=== PATIENT | male | born 1935 | race Caucasian/White ===

== ENCOUNTER 2017-03-20 15:16 | Inpatient (IN) | payer MEDICARE, OTHER ==
[~2017-03-20] VITALS: Ht 171.4 cm; Wt 85.9 kg
[2017-03-20 19:10] VITALS: BP 136/78
[2017-03-20] MEDS ORDERED: ACETAMINOPHEN 325 MG TABLET PO PRN (19:30)
[2017-03-20] MEDS ORDERED: CHOL20002 PO (19:46)
[2017-03-20] MEDS ORDERED: PROP60TA PO (19:46)
[2017-03-20] MEDS ORDERED: PRIM250T PO (19:46)
[2017-03-20] MEDS ORDERED: ASPI-621 PO (19:46)
[2017-03-20] MEDS ORDERED: SIMV10TA3 PO (19:46)
[2017-03-20] MEDS ORDERED: PLEASE ENTER HEIGHT AND WEIGHT MC SCH (20:00)
[2017-03-20] MEDS ORDERED: ACETAMINOPHEN 650 MG SUPP ONE (20:14)
[2017-03-20] MEDS ORDERED: LOSA100T6 PO ×2 (20:20→20:26)
[2017-03-20] MEDS ORDERED: AMLO5TAB2 PO (20:20)
[2017-03-20] MEDS ORDERED: AMLO2.5T PO (20:20)
[2017-03-20] MEDS ORDERED: [UNRECOGNIZED DRUG - CODE] PO (20:22)
[2017-03-20] MEDS ORDERED: HYDR12.53 PO (20:26)
[2017-03-20] MEDS ORDERED: CEFTRIAXONE PMX 1GM/50ML 50 ML IV SCH (22:30)
[2017-03-20] MEDS ORDERED: VANCOMYCIN PER PHARMACY MC PRN (22:30)
[2017-03-20] MEDS ORDERED: DOCUSATE 100 MG CAPSULE PO PRN (22:30)
[2017-03-20] MEDS ORDERED: TEMAZEPAM 15 MG CAPSULE PO PRN (22:30)
[2017-03-20] MEDS ORDERED: AMIODARONE 900 MG in DEXTROSE 5% 482 ML IV PRN (22:30)
[2017-03-20] MEDS ORDERED: HYDROcodone/APAP 5/325 TABLET PO PRN (22:30)
[2017-03-20] MEDS ORDERED: VANCOMYCIN 1,300 MG in SODIUM CHLORIDE 0.9% 250 ML IV ONE (22:30)
[2017-03-20] MEDS ORDERED: ONDANSETRON 2MG/ML, 2ML IVPush PRN (22:30)
[2017-03-20] MEDS ORDERED: PHARMACOKINETIC MONITORING MC PRN (23:00)
[2017-03-20] MEDS ORDERED: FILTER 0.22 MICRON IV PRN (23:00)
[2017-03-20] MEDS ORDERED: PHARMACOKINETIC CONSULTATION MC ONE (23:00)
[2017-03-20 23:15] LABS: CREATININE 1.12 mg/dL (0.7-1.3)
[2017-03-20] MEDS: PRIMIDONE 250 MG TABLET PO SCH (23:38)
[2017-03-20] MEDS: SODIUM CHLORIDE 0.9% 1,000 ML IV SCH (23:39)
[2017-03-21] MEDS: METRONIDAZOLE PMX 500MG/100ML 100 ML IV SCH ×3 (00:51→16:47)
[2017-03-21 00:59] VITALS: BP 122/81
[2017-03-21] MEDS ORDERED: VANCOMYCIN PER PHARMACY MC PRN (03:00)
[2017-03-21 05:27] LABS: MEAN CORPUSCULAR HEMOGLOBIN 30.2 pg (27.5-34.5); MEAN CORPUSCULAR HGB CONC 32.5 g/dL (33.2-36.2); MEAN CORPUSCULAR VOLUME 93.1 fL (81-97); MEAN PLATELET VOLUME 10.7 fL (7.4-10.4); PLATELET COUNT 121 x10^3/uL (130-400); RED BLOOD COUNT 4.15 x10^6/uL (4.38-5.82); RED CELL DISTRIBUTION WIDTH 14.6 % (9.4-14.8)
[2017-03-21 05:37] LABS: ANION GAP 8 mmol/L (5-15); CALCIUM 8.1 mg/dL (8.5-10.1); CHLORIDE 115 mmol/L (98-107); CREATININE 0.99 mg/dL (0.7-1.3)
[2017-03-21 06:06] LABS: BASOPHILS # (AUTO) 0.02 x10^3/uL (0-0.1); BASOPHILS % (AUTO) 0 % (0-1); EOSINOPHILS % (AUTO) 0 % (1-7); LYMPHOCYTES # (AUTO) 0.68 x10^3/uL (1-3.4); LYMPHOCYTES % (AUTO) 3 % (22-44); MD SCAN; MONOCYTES # (AUTO) 1.49 x10^3/uL (0.2-0.8); MONOCYTES % (AUTO) 7 % (2-9); NEUTROPHILS # (AUTO) 20.31 x10^3/uL (1.8-6.8); NEUTROPHILS % (AUTO) 90 % (42-75)
[2017-03-21] MEDS ORDERED: DILTIAZEM 5 MG/ML, 5ML IVPush ONE (08:00)
[2017-03-21] MEDS: CHOLECALCIFEROL 1,000 UNIT TABLET PO SCH (08:27)
[2017-03-21] MEDS ORDERED: METOPROLOL TARTRATE 25 MG TABLET ONE (08:30)
[2017-03-21 09:00] VITALS: BP 119/82
[2017-03-21] MEDS: LOSARTAN 50MG TABLET PO SCH (09:00)
[2017-03-21] MEDS ORDERED: PROPRANOLOl 80 MG CAP.SA.24H PO SCH (09:00)
[2017-03-21] MEDS: AMLODIPINE 2.5 MG TABLET PO SCH (09:00)
[2017-03-21] MEDS: DILTIAZEM 125 MG in SODIUM CHLORIDE 0.9% 100 ML IV PRN (09:01)
[2017-03-21] MEDS: HYDROCHLOROTHIAZIDE 12.5 MG CAPSULE PO SCH (09:02)
[2017-03-21] MEDS: METOPROLOL TARTRATE 25 MG TABLET PO SCH ×2 (09:02→21:36)
[2017-03-21] MEDS: SODIUM CHLORIDE 0.9% 1,000 ML IV SCH ×2 (09:02→22:15)
[2017-03-21 14:15] VITALS: BP 118/73
[2017-03-21] MEDS ORDERED: EPINEPHRINE 1 MG/ML, 1ML ONE (18:07)
[2017-03-21] MEDS ORDERED: BUPIVACAINE/PF 0.5% ONE (18:07)
[2017-03-21] MEDS ORDERED: FENTANYL PF 250 MCG/5ML ONE (18:16)
[2017-03-21] MEDS ORDERED: SUCCINYLCHOLINE 20 MG/ML, 10ML ONE (18:17)
[2017-03-21] MEDS ORDERED: ROCURONIUM 10 MG/ML,10ML ONE (18:17)
[2017-03-21] MEDS ORDERED: PROPOFOL 10 MG/ML, 20ML ONE (18:58)
[2017-03-21] MEDS ORDERED: ONDANSETRON 2MG/ML, 2ML ONE (18:59)
[2017-03-21] MEDS ORDERED: THROMBIN 5,000 UNIT VIAL TP ONE (19:17)
[2017-03-21] MEDS ORDERED: MICROFIBRILLAR COLLAGEN 70X35X1 DRESSING ONE (19:19)
[2017-03-21] MEDS ORDERED: OXYcodone 5 MG/5 ML ORAL.SOL UDC PO PRN (19:30)
[2017-03-21] MEDS ORDERED: FENTANYL PF 100 MCG/2ML IV PRN (19:30)
[2017-03-21] MEDS ORDERED: LABETALOL 5MG/ML, 20ML IV PRN (19:30)
[2017-03-21] MEDS ORDERED: ALBUTEROL SULFATE 2.5 MG/3 ML NPPB PRN (19:30)
[2017-03-21] MEDS ORDERED: ACETAMINOPHEN 325 MG TABLET PO PRN (19:30)
[2017-03-21] MEDS ORDERED: hydrALAzine 20 MG/ML, 1ML IV PRN (19:30)
[2017-03-21] MEDS ORDERED: ALBUTEROL/IPRATROPIUM 2.5MG/0.5MG, 3 ML NPPB PRN (19:30)
[2017-03-21] MEDS ORDERED: ONDANSETRON 2MG/ML, 2ML IVPush PRN (19:30)
[2017-03-21] MEDS ORDERED: PROMETHAZINE 25 MG/ML, 1ML IV PRN (19:30)
[2017-03-21] MEDS ORDERED: morphine SULFATE 10 MG/ML, 1ML IV PRN (19:30)
[2017-03-21] MEDS ORDERED: METOCLOPRAMIDE 5 MG/ML, 2ML ONE (19:57)
[2017-03-21] MEDS: PRIMIDONE 250 MG TABLET PO SCH (21:36)
[2017-03-21] MEDS: PIPERACILLIN/TAZO/PMX 3.375GM 50 ML IV SCH (21:36)
[2017-03-21 22:13] VITALS: BP 111/71
[2017-03-21] MEDS ORDERED: HYDROcodone/APAP 5/325 TABLET PO PRN (22:30)
[2017-03-21] MEDS: HYDROcodone/APAP 5/325 TABLET PO PRN (22:35)
[2017-03-22 01:30] VITALS: BP 106/72
[2017-03-22] MEDS ORDERED: VANCOMYCIN 1,300 MG in SODIUM CHLORIDE 0.9% 250 ML IV SCH (02:00)
[2017-03-22] MEDS: PIPERACILLIN/TAZO/PMX 3.375GM 50 ML IV SCH ×3 (03:22→17:28)
[2017-03-22 05:32] LABS: MEAN CORPUSCULAR HEMOGLOBIN 30.8 pg (27.5-34.5); MEAN CORPUSCULAR HGB CONC 33.4 g/dL (33.2-36.2); MEAN CORPUSCULAR VOLUME 92.1 fL (81-97); MEAN PLATELET VOLUME 10.7 fL (7.4-10.4); PLATELET COUNT 108 x10^3/uL (130-400); RED BLOOD COUNT 3.94 x10^6/uL (4.38-5.82); RED CELL DISTRIBUTION WIDTH 14.9 % (9.4-14.8)
[2017-03-22 05:46] LABS: CHLORIDE 116 mmol/L (98-107)
[2017-03-22] MEDS: METOPROLOL TARTRATE 25 MG TABLET PO SCH ×2 (05:54→17:28)
[2017-03-22 06:00] LABS: ANION GAP 9 mmol/L (5-15); CALCIUM 8.1 mg/dL (8.5-10.1); CREATININE 1.25 mg/dL (0.7-1.3)
[2017-03-22] MEDS: HYDROcodone/APAP 5/325 TABLET PO PRN ×2 (06:03→14:48)
[2017-03-22 06:33] LABS: BASOPHILS % (AUTO) 0 % (0-1); EOSINOPHILS % (AUTO) 0 % (1-7); LYMPHOCYTES # (AUTO) 0.69 x10^3/uL (1-3.4); LYMPHOCYTES % (AUTO) 4 % (22-44); MD SCAN; MONOCYTES # (AUTO) 1.48 x10^3/uL (0.2-0.8); MONOCYTES % (AUTO) 9 % (2-9); NEUTROPHILS # (AUTO) 14.56 x10^3/uL (1.8-6.8); NEUTROPHILS % (AUTO) 87 % (42-75)
[2017-03-22] MEDS: DILTIAZEM 125 MG in SODIUM CHLORIDE 0.9% 100 ML IV PRN (06:54)
[2017-03-22 06:55] VITALS: BP 105/69
[2017-03-22] MEDS: LOSARTAN 50MG TABLET PO SCH (07:40)
[2017-03-22] MEDS: CHOLECALCIFEROL 1,000 UNIT TABLET PO SCH (07:40)
[2017-03-22] MEDS: HYDROCHLOROTHIAZIDE 12.5 MG CAPSULE PO SCH (07:40)
[2017-03-22] MEDS: AMLODIPINE 2.5 MG TABLET PO SCH (07:40)
[2017-03-22] MEDS: SODIUM CHLORIDE 0.9% 1,000 ML IV SCH ×2 (07:40→22:00)
[2017-03-22] MEDS: DILTIAZEM 60 MG TABLET PO SCH ×3 (08:28→22:01)
[2017-03-22 12:28] VITALS: BP 100/69
[2017-03-22 19:47] VITALS: BP 94/57
[2017-03-22] MEDS: PRIMIDONE 250 MG TABLET PO SCH (22:00)
[2017-03-23] VITALS (7 sets, daily range): BP systolic 91–109; BP diastolic 58–72
[2017-03-23] MEDS: PIPERACILLIN/TAZO/PMX 3.375GM 50 ML IV SCH ×3 (03:08→18:03)
[2017-03-23] MEDS: HYDROcodone/APAP 5/325 TABLET PO PRN (03:26)
[2017-03-23 05:37] LABS: MEAN CORPUSCULAR HEMOGLOBIN 30.8 pg (27.5-34.5); MEAN CORPUSCULAR HGB CONC 33.6 g/dL (33.2-36.2); MEAN CORPUSCULAR VOLUME 91.7 fL (81-97); MEAN PLATELET VOLUME 10.9 fL (7.4-10.4); PLATELET COUNT 109 x10^3/uL (130-400); RED CELL DISTRIBUTION WIDTH 15.1 % (9.4-14.8)
[2017-03-23 05:45] LABS: CHLORIDE 113 mmol/L (98-107)
[2017-03-23 05:53] LABS: ANION GAP 9 mmol/L (5-15); CALCIUM 8.1 mg/dL (8.5-10.1); CREATININE 1.32 mg/dL (0.7-1.3); VANCOMYCIN,RANDOM 12.1 mcg/mL
[2017-03-23] MEDS: METOPROLOL TARTRATE 25 MG TABLET PO SCH ×2 (06:44→17:54)
[2017-03-23 06:57] LABS: MD YES
[2017-03-23 06:58] LABS: BANDS%(MANUAL) 3 % (0-7); LYMPH#(MANUAL) 1.33 x10^3/uL (1-3.4); LYMPHS% (MANUAL) 8 % (22-44); MONOS#(MANUAL) 1.49 x10^3/uL (0.3-2.7); MONOS% (MANUAL) 9 % (2-9); SEG#(MANUAL) 13.28 x10^3/uL (1.8-6.8); SEGS% (MANUAL) 80 % (42-75)
[2017-03-23 07:00] LABS: ANISOCYTOSIS 1+; PMNS WITH VACUOLES 1+
[2017-03-23 07:02] LABS: <PLATELET ESTIMATE> DECREASED; LARGE PLATELETS 1+
[2017-03-23] MEDS: DILTIAZEM 60 MG TABLET PO SCH ×3 (09:12→21:18)
[2017-03-23] MEDS: CHOLECALCIFEROL 1,000 UNIT TABLET PO SCH (09:14)
[2017-03-23] MEDS: SODIUM CHLORIDE 0.9% 1,000 ML IV SCH ×2 (09:14→17:54)
[2017-03-23 09:28] LABS: ALANINE AMINOTRANSFERASE 56 U/L (12-78); ALBUMIN 1.5 g/dL (3.4-5.0)
[2017-03-23 09:31] LABS: ALKALINE PHOSPHATASE 105 U/L (45-117); BILIRUBIN,TOTAL 0.5 mg/dL (0.2-1.0); TOTAL PROTEIN 4.8 g/dL (6.4-8.2)
[2017-03-23] MEDS: VANCOMYCIN 1,300 MG in SODIUM CHLORIDE 0.9% 250 ML IV SCH (11:37)
[2017-03-23] MEDS: ACETAMINOPHEN 325 MG TABLET PO PRN (11:37)
[2017-03-23] MEDS ORDERED: HEPARIN 5,000 UNITS/ML, 1ML ONE (17:59)
[2017-03-23] MEDS: PRIMIDONE 250 MG TABLET PO SCH (21:19)
[2017-03-23] MEDS: HEPARIN 5,000 UNITS/ML, 1ML SQ SCH (21:22)
[2017-03-24 00:03] VITALS: BP 112/69
[2017-03-24] MEDS: PIPERACILLIN/TAZO/PMX 3.375GM 50 ML IV SCH ×3 (03:17→18:05)
[2017-03-24] MEDS: SODIUM CHLORIDE 0.9% 1,000 ML IV SCH (05:06)
[2017-03-24 05:09] LABS: MEAN CORPUSCULAR HEMOGLOBIN 31.1 pg (27.5-34.5); MEAN CORPUSCULAR VOLUME 91.7 fL (81-97); MEAN PLATELET VOLUME 10.7 fL (7.4-10.4); PLATELET COUNT 118 x10^3/uL (130-400); RED BLOOD COUNT 3.68 x10^6/uL (4.38-5.82); RED CELL DISTRIBUTION WIDTH 15.5 % (9.4-14.8)
[2017-03-24] MEDS: HEPARIN 5,000 UNITS/ML, 1ML SQ SCH ×3 (05:11→21:12)
[2017-03-24] MEDS: METOPROLOL TARTRATE 25 MG TABLET PO SCH ×2 (05:11→18:04)
[2017-03-24 05:20] LABS: ANION GAP 8 mmol/L (5-15); CALCIUM 7.8 mg/dL (8.5-10.1); CHLORIDE 114 mmol/L (98-107)
[2017-03-24 05:22] LABS: CREATININE 0.99 mg/dL (0.7-1.3)
[2017-03-24 05:42] LABS: MD YES
[2017-03-24 05:47] LABS: ANISOCYTOSIS 1+; BAND#(MANUAL) 0.29 x10^3/uL; BANDS%(MANUAL) 2 % (0-7); EOS#(MANUAL) 0.14 x10^3/uL (0.0-0.4); EOS% (MANUAL) 1 % (1-7); LYMPH#(MANUAL) 0.43 x10^3/uL (1-3.4); LYMPHS% (MANUAL) 3 % (22-44); METAMYELOCYTES# (MANUAL) 0.14 x10^3/uL (0-0); METAMYELOCYTES% (MANUAL) 1 % (0-1); MONOS#(MANUAL) 1.43 x10^3/uL (0.3-2.7); MONOS% (MANUAL) 10 % (2-9); REACTIVE LYMPHS # (MANUAL) 0.43 x10^3/uL (0-0); REACTIVE LYMPHS % (MANUAL) 3 % (0-0); SEGS% (MANUAL) 80 % (42-75)
[2017-03-24 05:48] LABS: <PLATELET ESTIMATE> DECREASED; TOXIC GRAN 1+
[2017-03-24 05:49] LABS: LARGE PLATELETS 1+
[2017-03-24 07:40] VITALS: BP 105/67
[2017-03-24] MEDS: DILTIAZEM 60 MG TABLET PO SCH ×3 (09:19→21:09)
[2017-03-24] MEDS: CHOLECALCIFEROL 1,000 UNIT TABLET PO SCH (09:19)
[2017-03-24] MEDS ORDERED: POLYETHYLENE GLYCOL 17 GM PACKET PO PRN (09:30)
[2017-03-24] MEDS: SENNA/DOCUSATE TABLET PO SCH (10:12)
[2017-03-24] MEDS: VANCOMYCIN 1,300 MG in SODIUM CHLORIDE 0.9% 250 ML IV SCH (12:06)
[2017-03-24 15:12] VITALS: BP 97/63
[2017-03-24] MEDS: HYDROcodone/APAP 5/325 TABLET PO PRN (15:52)
[2017-03-24 18:16] VITALS: BP 99/60
[2017-03-24] MEDS: PRIMIDONE 250 MG TABLET PO SCH (21:09)
[2017-03-25 01:18] VITALS: BP 101/64
[2017-03-25] MEDS: PIPERACILLIN/TAZO/PMX 3.375GM 50 ML IV SCH ×3 (03:00→20:12)
[2017-03-25 05:35] LABS: ALANINE AMINOTRANSFERASE 32 U/L (12-78); ALBUMIN 1.3 g/dL (3.4-5.0); ANION GAP 8 mmol/L (5-15); CALCIUM 7.9 mg/dL (8.5-10.1); CHLORIDE 113 mmol/L (98-107); CHOLESTEROL, TOTAL 70 mg/dL (140-239); CREATININE 0.86 mg/dL (0.7-1.3)
[2017-03-25 05:37] LABS: ALKALINE PHOSPHATASE 78 U/L (45-117); BILIRUBIN,TOTAL 0.5 mg/dL (0.2-1.0); CHOL/HDL RATIO 8.8; HDL CHOL % 11 % (26-37); HDL CHOLESTEROL (DIRECT) 8 mg/dL (40-60); LDL CHOLESTEROL,CALCULATED 30 mg/dL (54-169); LDL/HDL RATIO 3.8 (0.5-3.0); TOTAL PROTEIN 4.8 g/dL (6.4-8.2); TRIGLYCERIDES 158 mg/dL (50-200); VLDL CHOLESTEROL 32 mg/dL (0-25)
[2017-03-25] MEDS: METOPROLOL TARTRATE 25 MG TABLET PO SCH ×2 (05:48→18:35)
[2017-03-25] MEDS: HEPARIN 5,000 UNITS/ML, 1ML SQ SCH ×2 (05:48→14:03)
[2017-03-25] MEDS: SENNA/DOCUSATE TABLET PO SCH (07:29)
[2017-03-25 07:45] VITALS: BP 115/72
[2017-03-25 07:58] VITALS: BP 101/70
[2017-03-25] MEDS: DILTIAZEM 60 MG TABLET PO SCH ×3 (08:47→20:12)
[2017-03-25] MEDS: CHOLECALCIFEROL 1,000 UNIT TABLET PO SCH (08:48)
[2017-03-25] MEDS: HYDROcodone/APAP 5/325 TABLET PO PRN (09:13)
[2017-03-25] MEDS: VANCOMYCIN 1,300 MG in SODIUM CHLORIDE 0.9% 250 ML IV SCH (11:39)
[2017-03-25 13:05] VITALS: BP 120/72
[2017-03-25] MEDS ORDERED: OMNIPAQUE 350 MG/ML, 100ML BOTTLE ONE (14:06)
[2017-03-25 16:52] VITALS: BP 127/74
[2017-03-25] MEDS ORDERED: FUROSEMIDE 20 MG/2 ML IV ONE (19:00)
[2017-03-25 19:50] VITALS: BP 126/67
[2017-03-25] MEDS ORDERED: HEPARIN wt. based STROKE protocol MC PRN (20:00)
[2017-03-25] MEDS ORDERED: HEPARIN 25,000 UNITS/500ML PMX 500 ML IV PRN (20:00)
[2017-03-25] MEDS: PRIMIDONE 250 MG TABLET PO SCH (20:12)
[2017-03-26 02:27] VITALS: BP 125/83
[2017-03-26 04:07] LABS: ALANINE AMINOTRANSFERASE 27 U/L (12-78); ALBUMIN 1.2 g/dL (3.4-5.0); ANION GAP 8 mmol/L (5-15); CALCIUM 7.7 mg/dL (8.5-10.1); CHLORIDE 110 mmol/L (98-107); CREATININE 0.85 mg/dL (0.7-1.3)
[2017-03-26 04:09] LABS: ALKALINE PHOSPHATASE 66 U/L (45-117); BILIRUBIN,TOTAL 0.4 mg/dL (0.2-1.0); TOTAL PROTEIN 4.4 g/dL (6.4-8.2)
[2017-03-26] MEDS: PIPERACILLIN/TAZO/PMX 3.375GM 50 ML IV SCH ×3 (04:10→20:49)
[2017-03-26 04:30] LABS: MEAN CORPUSCULAR HEMOGLOBIN 30.3 pg (27.5-34.5); MEAN CORPUSCULAR HGB CONC 33.5 g/dL (33.2-36.2); MEAN CORPUSCULAR VOLUME 90.5 fL (81-97); MEAN PLATELET VOLUME 9.4 fL (7.4-10.4); PLATELET COUNT 169 x10^3/uL (130-400); RED BLOOD COUNT 3.42 x10^6/uL (4.38-5.82)
[2017-03-26 04:51] LABS: BASOPHILS % (AUTO) 0 % (0-1); EOSINOPHILS # (AUTO) 0.26 x10^3/uL (0-0.4); EOSINOPHILS % (AUTO) 2 % (1-7); LYMPHOCYTES # (AUTO) 0.73 x10^3/uL (1-3.4); LYMPHOCYTES % (AUTO) 6 % (22-44); MD SCAN; MONOCYTES # (AUTO) 1.57 x10^3/uL (0.2-0.8); MONOCYTES % (AUTO) 12 % (2-9); NEUTROPHILS # (AUTO) 10.57 x10^3/uL (1.8-6.8); NEUTROPHILS % (AUTO) 81 % (42-75)
[2017-03-26] MEDS: METOPROLOL TARTRATE 25 MG TABLET PO SCH ×2 (06:33→17:51)
[2017-03-26 07:47] VITALS: BP 106/68
[2017-03-26] MEDS: SENNA/DOCUSATE TABLET PO SCH (08:30)
[2017-03-26] MEDS: DILTIAZEM 60 MG TABLET PO SCH ×3 (08:31→20:49)
[2017-03-26] MEDS: CHOLECALCIFEROL 1,000 UNIT TABLET PO SCH (08:31)
[2017-03-26] MEDS: VANCOMYCIN 1,300 MG in SODIUM CHLORIDE 0.9% 250 ML IV SCH (11:11)
[2017-03-26 13:16] VITALS: BP 124/64
[2017-03-26] MEDS: ACETAMINOPHEN 325 MG TABLET PO PRN (13:26)
[2017-03-26 16:21] VITALS: BP 119/69
[2017-03-26] MEDS ORDERED: POTASSIUM CHLORIDE 20 MEQ TAB.ER.PRT PO ONE (19:00)
[2017-03-26] MEDS ORDERED: FUROSEMIDE 20 MG/2 ML IV ONE (19:00)
[2017-03-26 19:28] VITALS: BP 113/66
[2017-03-26] MEDS: APIXABAN 5 MG TABLET PO SCH (20:52)
[2017-03-26] MEDS: PRIMIDONE 250 MG TABLET PO SCH (20:52)
[2017-03-26] MEDS ORDERED: APIXABAN 5 MG TABLET PO SCH (23:55)
[2017-03-27 00:27] VITALS: BP 126/75
[2017-03-27] MEDS: PIPERACILLIN/TAZO/PMX 3.375GM 50 ML IV SCH ×2 (03:50→11:07)
[2017-03-27] MEDS: METOPROLOL TARTRATE 25 MG TABLET PO SCH (05:52)
[2017-03-27 08:30] VITALS: BP 125/90
[2017-03-27] MEDS: SENNA/DOCUSATE TABLET PO SCH (09:00)
[2017-03-27] MEDS ORDERED: AMLODIPINE 5 MG TABLET PO SCH (09:00)
[2017-03-27] MEDS: APIXABAN 5 MG TABLET PO SCH (09:01)
[2017-03-27] MEDS: CHOLECALCIFEROL 1,000 UNIT TABLET PO SCH (09:01)
[2017-03-27] MEDS: DILTIAZEM 60 MG TABLET PO SCH ×2 (09:01→15:55)
[2017-03-27] MEDS ORDERED: DIGOXIN 0.25 MG/ML, 2ML IVPush ONE (10:00)
[2017-03-27] MEDS ORDERED: POTASSIUM CHLORIDE 20 MEQ TAB.ER.PRT PO ONE (10:00)
[2017-03-27] MEDS ORDERED: APIX5TAB PO (10:18)
[2017-03-27] MEDS ORDERED: SENN1TAB7 PO (10:18)
[2017-03-27] MEDS ORDERED: DILT60TA27 PO (10:18)
[2017-03-27] MEDS ORDERED: METO25TA35 PO (10:18)
[2017-03-27] MEDS ORDERED: ACET325T14 PO (10:18)
[2017-03-27] MEDS ORDERED: METR500T PO (10:22)
[2017-03-27] MEDS ORDERED: CEFD300C37 PO (10:22)
[2017-03-27] MEDS ORDERED: DIGO125T PO (13:42)
[2017-03-27 15:30] VITALS: BP 125/73
[2017-03-27] MEDS ORDERED: DIGOXIN 0.125 MG TABLET PO SCH (18:00)
== END 2017-03-27 16:43 | DRG 853 ==
LOC: 5SO 18:59
PROVIDERS: ADMIT Hospitalist; ATTEND Hospitalist
PROC: 0FT44ZZ Resection of Gallbladder, Percutaneous Endoscopic Approach (ICD-10-PCS; principal; 2017-03-21 18:30)
DX: A41.9 Sepsis, unspecified organism (principal); E43 Unspecified severe protein-calorie malnutrition; I96 Gangrene, not elsewhere classified; K81.0 Acute cholecystitis; E87.2 Acidosis; D68.59 Other primary thrombophilia; I11.0 Hypertensive heart disease with heart failure; I07.1 Rheumatic tricuspid insufficiency; I50.9 Heart failure, unspecified; J98.11 Atelectasis; I48.2 Chronic atrial fibrillation; E78.00 Pure hypercholesterolemia, unspecified; E78.5 Hyperlipidemia, unspecified; G25.0 Essential tremor; I34.0 Nonrheumatic mitral (valve) insufficiency; B96.20 Unspecified Escherichia coli [E. coli] as the cause of diseases classified elsewhere; I35.1 Nonrheumatic aortic (valve) insufficiency; J32.9 Chronic sinusitis, unspecified; K44.9 Diaphragmatic hernia without obstruction or gangrene; K66.0 Peritoneal adhesions (postprocedural) (postinfection); K82.8 Other specified diseases of gallbladder; Z79.01 Long term (current) use of anticoagulants; Z79.899 Other long term (current) drug therapy; Z82.3 Family history of stroke; Z82.49 Family history of ischemic heart disease and other diseases of the circulatory system; Z86.73 Personal history of transient ischemic attack (TIA), and cerebral infarction without residual deficits; Z87.891 Personal history of nicotine dependence; Z68.29 Body mass index [BMI] 29.0-29.9, adult
CPT/HCPCS: 36415; 70450; 74177; 80048; 80053; 80061; 80202; 82565; 83735; 85025; 85520; 87040; 87070; 87075; 87077; 87081; 87186; 87205; 87880; 88304; 93306; J0171; J0696; J1644; J2405; J2543; J2704; J3010; J3370; J3490; Q9967; 92523-GN; J0282; J0330; J1160; J1940; J2765; J7030; J7050; J7060